=== PATIENT | male | born 1945 | race Caucasian/White ===

== ENCOUNTER 2017-11-07 21:07 | Inpatient (IN) | payer OTHER ==
[~2017-11-07] VITALS: Ht 172.7 cm; Wt 86.7 kg
[~2017-11-07 21:07] MED LIST: ASPEC325 PO; IBUP-1050 PO; PRLSR20 PO; TRAM-10 PO
[2017-11-07] MEDS ORDERED: PIPERACILLIN/TAZOBACTAM 4.5 GM/100ML D5W IV STA (22:15)
[2017-11-07] MEDS ORDERED: SODIUM CHLORIDE 0.9% 1000ML 1,000 ML IV ONE (22:15)
[2017-11-07] MEDS ORDERED: ACETAMINOPHEN 500 MG TAB PO STA (22:15)
[2017-11-07] MEDS ORDERED: ASPI81TA28 PO (22:22)
[2017-11-07] MEDS ORDERED: OPTIRAY 320 IV PRN (22:30)
--- NOTE | 2017-11-07 22:34 | DIAGNOSTIC IMAGING REPORT ---
CHEST ONE VIEW PORTABLE CLINICAL HISTORY: Sepsis dyspnea COMPARISON STUDY: 07/12/2016 FINDINGS: The bones soft tissues and hemidiaphragms are normal. The cardiomediastinal silhouette is normal. The lungs are clear. The pulmonary vasculature is normal. IMPRESSION: Negative chest. The above report was generated using voice recognition software. It may contain grammatical, syntax or spelling errors. Electronically signed by: Rupesh Lauren M.D. 11/07/2017 10:32 PM Dictated Date/Time: 11/07/2017 10:31 PM
--- NOTE | 2017-11-07 22:44 | EMERGENCY ROOM VISIT NOTE ---
History First contact with patient: 21:51 Chief Complaint: ABDOMINAL PAIN Stated Complaint: EPIGASTRIC PAIN Nursing Triage Summary: Pt arrives to B9 via ALS with c/o of epigastric pain radiating to his back that started at 1000 this am. Pt denies n/v/d or any recent illness. Rating pain 2 on scale 0-10. 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 EKG performed by this RN, Accelerated junctional rhythm with left axis deviation noted. temp 38.9. History of Present Illness The patient is a 72 year old male who presents to the Emergency Room with complaints of upper abdominal pain since this morning that began after breakfast , 6/10 in severity. Pain is constant, sharp, radiates to the back. Denies nausea , emesis, diarrhea, constipation, light colored stools, melena, hematuria, burning upon urination. Has taken pepto bismol. Laying in bed is comfortable, pain is 2/10. After interview, pt's approaches resident in the brewer and states that he has been acting out of sorts today, at one point was sitting up in bed bent over and said he was "looking for moves" and would not answer her questions directly. She says he won't hold eye contact with her. Review of Systems See HPI for pertinent positives and negatives. Past Medical/Surgical History Medical Problems: (1) Right Knee DJD Social History Smoking Status: Former Smoker Alcohol Use: none Drug Use: none Marital Status: Housing Status: lives with family Occupation Status: retired Current/Historical Medications Scheduled Aspirin (Aspirin Ec), 81 MG PO DAILY Ibuprofen (Advil), 200 MG PO TID Omeprazole (Prilosec), 20 MG PO QAM Scheduled PRN Tramadol (Ultram), 50 MG PO Q8H PRN for Pain Physical Exam Vital Signs Date Time Temp Pulse Resp B/P (MAP) Pulse Ox O2 Delivery O2 Flow Rate FiO2 11/08/17 04:00 85 19 165/80 97 Nasal Cannula 4 11/08/17 03:50 36.2 93 20 159/72 91 Nasal Cannula 4 11/08/17 02:21 38.5 103 20 160/89 97 11/08/17 00:58 157/73 11/07/17 23:24 103 20 176/81 97 Room Air 11/07/17 22:41 111 20 172/86 98 11/07/17 21:48 105 20 174/80 97 11/07/17 21:41 106 11/07/17 21:22 97 Room Air 11/07/17 21:19 38.5 112 98 162/93 Room Air Physical Exam GENERAL: Awake, alert to self and place but not time, well-appearing, in no distress HENT: Normocephalic, atraumatic. Oropharynx unremarkable. EYES: Normal conjunctiva. Sclera non-icteric. NECK: Supple. FROM. No JVD. RESPIRATORY: Clear to auscultation. CARDIAC: Regular rate, normal rhythm. Extremities warm and well perfused. Pulses equal. ABDOMEN: Soft, non-distended. ++ Tenderness to palpation in RLQ. No rebound or guarding. No masses. RECTAL: Deferred. MUSCULOSKELETAL: Chest examination reveals no tenderness. The back is symmetrical on inspection without obvious abnormality. There is no CVA tenderness to palpation. No joint edema. LOWER EXTREMITIES: Calves are equal size bilaterally and non-tender. No edema. No discoloration. NEURO: Normal sensorium. No sensory or motor deficits noted. Finger to nose in tact, CN 2-12 intact. SKIN: No rash or jaundice noted. Medical Decision & Procedures Laboratory Results 11/07/17 23:05 Red Blood Count 4.52, Mean Corpuscular Volume 83.4, Mean Corpuscular Hemoglobin 27.9, Mean Corpuscular Hemoglobin Concent 33.4, Mean Platelet Volume 10.7, Neutrophils (%) (Auto) 87.7, Lymphocytes (%) (Auto) 5.6, Monocytes (%) (Auto) 6.3, Eosinophils (%) (Auto) 0.0, Basophils (%) (Auto) 0.1, Neutrophils # (Auto) 13.53, Lymphocytes # (Auto) 0.86, Monocytes # (Auto) 0.97, Eosinophils # (Auto) 0.00, Basophils # (Auto) 0.01 11/07/17 23:05 Test 11/07/17 23:05 11/07/17 23:33 11/08/17 02:17 White Blood Count 15.41 K/uL (4.8-10.8) Red Blood Count 4.52 M/uL (4.7-6.1) Hemoglobin 12.6 g/dL (14.0-18.0) Hematocrit 37.7 % (42-52) Mean Corpuscular Volume 83.4 fL (80-100) Mean Corpuscular Hemoglobin 27.9 pg (25-34) Mean Corpuscular Hemoglobin Concent 33.4 g/dl (32-36) Platelet Count 245 K/uL (130-400) Mean Platelet Volume 10.7 fL (7.4-10.4) Neutrophils (%) (Auto) 87.7 % Lymphocytes (%) (Auto) 5.6 % Monocytes (%) (Auto) 6.3 % Eosinophils (%) (Auto) 0.0 % Basophils (%) (Auto) 0.1 % Neutrophils # (Auto) 13.53 K/uL (1.4-6.5) Lymphocytes # (Auto) 0.86 K/uL (1.2-3.4) Monocytes # (Auto) 0.97 K/uL (0.11-0.59) Eosinophils # (Auto) 0.00 K/uL (0-0.5) Basophils # (Auto) 0.01 K/uL (0-0.2) RDW Standard Deviation 44.0 fL (36.4-46.3) RDW Coefficient of Variation 14.5 % (11.5-14.5) Immature Granulocyte % (Auto) 0.3 % Immature Granulocyte # (Auto) 0.04 K/uL (0.00-0.02) Prothrombin Time 11.0 SECONDS (9.0-12.0) Prothromb Time International Ratio 1.0 (0.9-1.1) Activated Partial Thromboplast Time 24.0 SECONDS (21.0-31.0) Partial Thromboplastin Ratio 0.9 Anion Gap 9.0 mmol/L (3-11) Est Creatinine Clear Calc Drug Dose 55.0 ml/min Estimated GFR () 63.9 Estimated GFR (Non- 55.2 BUN/Creatinine Ratio 14.1 (10-20) Calcium Level 8.9 mg/dl (8.5-10.1) Magnesium Level 1.7 mg/dl (1.8-2.4) Total Bilirubin 0.5 mg/dl (0.2-1) Aspartate Amino Transf (AST/SGOT) 13 U/L (15-37) Alanine Aminotransferase (ALT/SGPT) 19 U/L (12-78) Alkaline Phosphatase 69 U/L (45-117) Troponin I < 0.015 ng/ml (0-0.045) Total Protein 7.1 gm/dl (6.4-8.2) Albumin 3.5 gm/dl (3.4-5.0) Globulin 3.6 gm/dl (2.5-4.0) Albumin/Globulin Ratio 1.0 (0.9-2) Lipase 80 U/L (73-393) Bedside Lactic Acid Venous 0.86 mmol/L (0.90-1.70) Bedside Glucose 172 mg/dl (70-99) Medications Administered Medications (Trade) Dose Ordered Sig/Magaly Route Start Time Stop Time Status Last Admin Dose Admin Sodium Chloride 1,000 ml @ 999 mls/hr Q1H1M ONCE IV 11/07/17 22:15 11/07/17 23:15 DC 11/07/17 22:36 999 MLS/HR Piperacillin Sod/ Tazobactam Sod (Zosyn Iv) 4.5 gm ONE STAT IV 11/07/17 22:15 11/07/17 22:18 DC 11/07/17 23:19 4.5 GM Acetaminophen (Tylenol Tab) 1,000 mg NOW STAT PO 11/07/17 22:15 11/07/17 22:18 DC 11/07/17 22:36 1,000 MG Magnesium Sulfate (Magnesium Sulfate) 1 gm NOW STAT IV 11/08/17 00:44 11/08/17 00:45 DC 11/08/17 00:57 1 GM Sodium Chloride 500 ml @ 999 mls/hr Q31M STAT IV 11/08/17 01:06 11/08/17 01:36 DC 11/08/17 01:06 999 MLS/HR Bupivacaine HCl (Marcaine 0.5% MPF Inj) 30 ml STK-MED ONCE .ROUTE 11/08/17 02:06 11/08/17 02:07 DC 11/08/17 03:33 20 ML Epinephrine HCl (EpINEphrine INJ 1MG/ML AMP/VIAL) 1 mg STK-MED ONCE .ROUTE 11/08/17 02:06 11/08/17 02:07 DC 11/08/17 03:32 0.15 MG ED Course 2200 signed up, reviewed records, assessed pt - when made pt aware that he is out of sorts, resident approached attending given possible delirium/ septic picture evolving. Attending ordered sepsis work up as well as IV abx and fluids, and tylenol for fever. Attending took over care, please see course details on attending's note. Medical Decision The patient is a 72 year old male who presents to the Emergency Room with complaints of upper abdominal pain since this morning that began after breakfast , 6/10 in severity. Pain is constant, sharp, radiates to the back. Denies nausea , emesis, diarrhea, constipation, light colored stools, melena, hematuria, burning upon urination. Has taken pepto bismol. Laying in bed is comfortable, pain is 2/10. After interview, pt's approaches resident in the brewer and states that he has been acting out of sorts today, at one point was sitting up in bed bent over and said he was "looking for moves" and would not answer her questions directly. She says he won't hold eye contact with her. DDX: appendicitis, delirium, [place], diverticulitis, sepsis Elevated WBC, +fever, abdomen of CT per attending shows 15mm appendix with evidence of fecalith. Attending d/w surgery. Pt prepped for admission and surgical intervention. Impression Primary Impression: Acute appendicitis Additional Impression: Confusion Departure Information Referrals No Doctor, Assigned (PCP) Patient Instructions My [facility] Resident Tracking Resident Involvement: Resident Care Provided Care Provided: Adult ED Problem Qualifiers Primary Impression: Acute appendicitis
[2017-11-07 23:36] LABS: BASO % 0.1 %; BASO ABS # 0.01 K/uL (0-0.2); HEMATOCRIT 37.7 % (42-52); HEMOGLOBIN 12.6 g/dL (14.0-18.0); IG# 0.04 K/uL (0.00-0.02); LYMPH % 5.6 %; LYMPH ABS # 0.86 K/uL (1.2-3.4); MEAN CELL VOLUME 83.4 fL (80-100); MEAN CORPUSCULAR HEMOGLOBIN 27.9 pg (25-34); MEAN CORPUSCULAR HGB CONC 33.4 g/dl (32-36); MEAN PLATELET VOLUME 10.7 fL (7.4-10.4); MONO % 6.3 %; MONO ABS # 0.97 K/uL (0.11-0.59); NEUT % 87.7 %; NEUT ABS # 13.53 K/uL (1.4-6.5); PLATELET COUNT 245 K/uL (130-400); RED CELL DISTRIBUTION WIDTH CV 14.5 % (11.5-14.5); WHITE BLOOD COUNT 15.41 K/uL (4.8-10.8)
[2017-11-07 23:54] LABS: ALBUMIN 3.5 gm/dl (3.4-5.0); ALT/SGPT 19 U/L (12-78); BLOOD UREA NITROGEN 18 mg/dl (7-18); CALCIUM 8.9 mg/dl (8.5-10.1); CARBON DIOXIDE 25 mmol/L (21-32); CREATININE 1.28 mg/dl (0.60-1.40); GLUCOSE 170 mg/dl (70-99); LIPASE 80 U/L (73-393); POTASSIUM 3.6 mmol/L (3.5-5.1); SODIUM 135 mmol/L (136-145)
[2017-11-07 23:59] LABS: ALKALINE PHOSPHATASE 69 U/L (45-117); AST/SGOT 13 U/L (15-37); TOTAL PROTEIN 7.1 gm/dl (6.4-8.2)
[2017-11-08] VITALS (11 sets, daily range): BP systolic 98–148; BP diastolic 57–72; PULSE 69–92; TEMP 36.6–37.2; O2SAT 92–99; Ht 172.7 cm; Wt 86.7 kg
--- NOTE | 2017-11-08 00:02 | EMERGENCY ROOM VISIT NOTE ---
History Report prepared by Nancy: Kaleb Akins Under the Supervision of: Dr. Dez Alves M.D. First contact with patient: 21:50 Chief Complaint: ABDOMINAL PAIN Stated Complaint: EPIGASTRIC PAIN Nursing Triage Summary: Pt arrives to B9 via ALS with c/o of epigastric pain radiating to his back that started at 1000 this am. Pt denies n/v/d or any recent illness. Rating pain 2 on scale 0-10. BSG 187 and EKG showed first degree AV block [employer]ISH[employer]. EKG performed by this RN, Accelerated junctional rhythm with left axis deviation noted. temp 38.9. History of Present Illness The patient is a 72 year old male who presents to the Emergency Room with complaints of persistent epigastric abdominal pain that began this morning. When his pain began, he rated it a 6/10 in severity. However, lying down has mildly relieved his pain, and he rates it a 2/10 in severity. This morning, the patient woke up like usual and ate breakfast. After he ate, he began having this sharp epigastric abdominal pain that radiated into his back. This persisted throughout the day. He developed a fever over this time and notes some sinus congestion. He denies any syncope, headaches, chest pain, shortness of breath, nausea, vomiting, diarrhea, or any other abnormal symptoms. He denies any previous abdominal surgeries and has not used steroids/antibiotics recently. He has a past medical history of arthritis that is controlled with Ibuprofen. The patient's informed us that he has not been himself today. He has seemed extremely distracted and is unable to answer her questions clearly and appropriately. Source of History: patient, spouse/significant other Onset: earlier this morning Position: abdomen (epigastrium) Symptom Intensity: 2/10 Quality: sharp Timing: other (Persistent) Modifying Factors (Relieving): rest (lying down) Associated Symptoms: + fevers, No LOC, No headache, No chest pain, No SOB, No nausea, No vomiting, No diarrhea Review of Systems See HPI for pertinent positives & negatives. A total of 10 systems reviewed and were otherwise negative. Past Medical & Surgical Medical Problems: (1) Right Knee DJD Family History Omitted secondary to the patient's age. Social History Smoking Status: Former Smoker Alcohol Use: none Drug Use: none Marital Status: Housing Status: lives with family Occupation Status: retired Current/Historical Medications Scheduled Aspirin (Aspirin Ec), 81 MG PO DAILY Ibuprofen (Advil), 200 MG PO TID Omeprazole (Prilosec), 20 MG PO QAM Scheduled PRN Tramadol (Ultram), 50 MG PO Q8H PRN for Pain Allergies Coded Allergies: No Known Allergies (Unverified , 07/30/16) Physical Exam Vital Signs Date Time Temp Pulse Resp B/P (MAP) Pulse Ox O2 Delivery O2 Flow Rate FiO2 11/08/17 02:21 38.5 103 20 160/89 97 11/08/17 00:58 157/73 11/07/17 23:24 103 20 176/81 97 Room Air 11/07/17 22:41 111 20 172/86 98 11/07/17 21:48 105 20 174/80 97 11/07/17 21:41 106 11/07/17 21:22 97 Room Air 11/07/17 21:19 38.5 112 98 162/93 Room Air Physical Exam GENERAL: Patient is in no acute distress. HEENT: No acute trauma, normocephalic atraumatic, mucous membranes moist, no nasal congestion, no scleral icterus. NECK: No stridor, no adenopathy, no meningismus, trachea is midline. LUNGS: Clear to auscultation bilaterally, no wheeze, no rhonchi, breath sounds equal. HEART: Tachycardic rate with a regular rhythm. No murmurs. ABDOMEN: Soft, moderately tender to the RLQ, bowel sounds positive, no hernias, no peritonitis. EXTREMITIES: No cyanosis or edema, full range of motion of all the joints without pain or difficulty, no signs for acute trauma. NEUROLOGIC: Oriented x 3, no acute motor or sensory deficits, no focal weakness. SKIN: Warm to touch. No rash, no jaundice, no diaphoresis. Medical Decision & Procedures ER Provider Diagnostic Interpretation: Radiology results as stated below per my review and radiologist interpretation: CHEST ONE VIEW PORTABLE CLINICAL HISTORY: Sepsis dyspnea COMPARISON STUDY: 07/12/2016 FINDINGS: The bones soft tissues and hemidiaphragms are normal. The cardiomediastinal silhouette is normal. The lungs are clear. The pulmonary vasculature is normal. IMPRESSION: Negative chest. The above report was generated using voice recognition software. It may contain grammatical, syntax or spelling errors. Electronically signed by: Rupesh Lauren M.D. 11/07/2017 10:32 PM Dictated Date/Time: 11/07/2017 10:[address] HEAD: No ICH, mass effect or edema. No evidence of acute cortical stroke. Periventricular small vessel ischemic change. No midline shift or hydrocephalus. Diffuse parenchymal atrophy. No Dense carotid siphon atherosclerotic calcifications. Small air-fluid level in the right maxillary sinus. Mastoid air cells are clear. CT ABDOMEN & PELVIS With Contrast: Acute appendicitis with fecaliths and appendix dilated to 15 mm. Consider reactive thickening involving the terminal ileum and the cecum (could also be from incomplete distention). No bowel obstruction. No abscess. No perforation or free air and no evidence for obstructive uropathy. Radiologist: Ravi Harrell M.D. Laboratory Results 11/07/17 23:05 Red Blood Count 4.52, Mean Corpuscular Volume 83.4, Mean Corpuscular Hemoglobin 27.9, Mean Corpuscular Hemoglobin Concent 33.4, Mean Platelet Volume 10.7, Neutrophils (%) (Auto) 87.7, Lymphocytes (%) (Auto) 5.6, Monocytes (%) (Auto) 6.3, Eosinophils (%) (Auto) 0.0, Basophils (%) (Auto) 0.1, Neutrophils # (Auto) 13.53, Lymphocytes # (Auto) 0.86, Monocytes # (Auto) 0.97, Eosinophils # (Auto) 0.00, Basophils # (Auto) 0.01 11/07/17 23:05 Test 11/07/17 23:05 11/07/17 23:33 11/08/17 02:17 White Blood Count 15.41 K/uL (4.8-10.8) Red Blood Count 4.52 M/uL (4.7-6.1) Hemoglobin 12.6 g/dL (14.0-18.0) Hematocrit 37.7 % (42-52) Mean Corpuscular Volume 83.4 fL (80-100) Mean Corpuscular Hemoglobin 27.9 pg (25-34) Mean Corpuscular Hemoglobin Concent 33.4 g/dl (32-36) Platelet Count 245 K/uL (130-400) Mean Platelet Volume 10.7 fL (7.4-10.4) Neutrophils (%) (Auto) 87.7 % Lymphocytes (%) (Auto) 5.6 % Monocytes (%) (Auto) 6.3 % Eosinophils (%) (Auto) 0.0 % Basophils (%) (Auto) 0.1 % Neutrophils # (Auto) 13.53 K/uL (1.4-6.5) Lymphocytes # (Auto) 0.86 K/uL (1.2-3.4) Monocytes # (Auto) 0.97 K/uL (0.11-0.59) Eosinophils # (Auto) 0.00 K/uL (0-0.5) Basophils # (Auto) 0.01 K/uL (0-0.2) RDW Standard Deviation 44.0 fL (36.4-46.3) RDW Coefficient of Variation 14.5 % (11.5-14.5) Immature Granulocyte % (Auto) 0.3 % Immature Granulocyte # (Auto) 0.04 K/uL (0.00-0.02) Prothrombin Time 11.0 SECONDS (9.0-12.0) Prothromb Time International Ratio 1.0 (0.9-1.1) Activated Partial Thromboplast Time 24.0 SECONDS (21.0-31.0) Partial Thromboplastin Ratio 0.9 Anion Gap 9.0 mmol/L (3-11) Est Creatinine Clear Calc Drug Dose 55.0 ml/min Estimated GFR () 63.9 Estimated GFR (Non- 55.2 BUN/Creatinine Ratio 14.1 (10-20) Calcium Level 8.9 mg/dl (8.5-10.1) Magnesium Level 1.7 mg/dl (1.8-2.4) Total Bilirubin 0.5 mg/dl (0.2-1) Aspartate Amino Transf (AST/SGOT) 13 U/L (15-37) Alanine Aminotransferase (ALT/SGPT) 19 U/L (12-78) Alkaline Phosphatase 69 U/L (45-117) Troponin I < 0.015 ng/ml (0-0.045) Total Protein 7.1 gm/dl (6.4-8.2) Albumin 3.5 gm/dl (3.4-5.0) Globulin 3.6 gm/dl (2.5-4.0) Albumin/Globulin Ratio 1.0 (0.9-2) Lipase 80 U/L (73-393) Bedside Lactic Acid Venous 0.86 mmol/L (0.90-1.70) Bedside Glucose 172 mg/dl (70-99) Laboratory results reviewed by me. Medications Administered Medications (Trade) Dose Ordered Sig/Magaly Route Start Time Stop Time Status Last Admin Dose Admin Sodium Chloride 1,000 ml @ 999 mls/hr Q1H1M ONCE IV 11/07/17 22:15 11/07/17 23:15 DC 11/07/17 22:36 999 MLS/HR Piperacillin Sod/ Tazobactam Sod (Zosyn Iv) 4.5 gm ONE STAT IV 11/07/17 22:15 11/07/17 22:18 DC 11/07/17 23:19 4.5 GM Acetaminophen (Tylenol Tab) 1,000 mg NOW STAT PO 11/07/17 22:15 11/07/17 22:18 DC 11/07/17 22:36 1,000 MG Magnesium Sulfate (Magnesium Sulfate) 1 gm NOW STAT IV 11/08/17 00:44 11/08/17 00:45 DC 11/08/17 00:57 1 GM Sodium Chloride 500 ml @ 999 mls/hr Q31M STAT IV 11/08/17 01:06 11/08/17 01:36 DC 11/08/17 01:06 999 MLS/HR Bupivacaine HCl (Marcaine 0.5% MPF Inj) 30 ml STK-MED ONCE .ROUTE 11/08/17 02:06 11/08/17 02:07 DC 11/08/17 03:33 20 ML Epinephrine HCl (EpINEphrine INJ 1MG/ML AMP/VIAL) 1 mg STK-MED ONCE .ROUTE 11/08/17 02:06 11/08/17 02:07 DC 11/08/17 03:32 0.15 MG ECG Indication: abdominal pain Rate (beats per minute): 116 Rhythm: sinus rhythm Findings: 1st degree AV block, other (No ST elevation, somewhat prolonged QT interval, no PVCs compared) Comparison ECG Date: 12 Jul 2016 Change: Compared to previous, the rate has increased. Patient's electrocardiogram interpreted by me. ED Course 2149: The patient was evaluated in room B9. A complete history and physical exam was performed. 2214: Ordered Tylenol Tab 1000 mg PO, Zosyn Iv 4.5 gm IV, Sodium Chloride 1000 ml @ 999 mls/hr IV 0006: I updated the patient and his family at this time. He is going for his CT scan. 0044: Ordered Magnesium Sulfate 1 gm IV 0106: Ordered Sodium Chloride 500 ml @ 999 mls/hr IV 0123: Upon reexamination the patient is resting. I discussed results and treatment plan with the patient and his family. He verbalizes agreement and understanding. I spoke with Dr. Sweeney of General Surgery. We discussed the patient's results and findings. The patient will be evaluated by them for further management. Medical Decision Differential diagnosis includes but is not limited to appendicitis, diverticulitis, acute cholecystitis, pancreatitis, abscess, bowel rupture, UTI, sepsis, pneumonia, and stoke. There is a moderate leukocytosis at 15,000, this is consistent with infection. No concerning anemia. No significant electrolyte abnormalities, kidney failure or hepatitis. Magnesium slightly low. EKG shows a sinus tachycardia, no acute ischemia. Cardiac enzyme testing 1 is not consistent with acute cardiac injury. By our testing, there was no evidence for pancreatitis. Chest x-ray does not show pneumonia. There was no coagulopathy. Blood cultures are pending. Lactic acid level is not elevated making severe sepsis less likely. Brain CT shows no acute bleed or mass effect. Abdominal CT shows evidence for acute appendicitis. The patient presents with a fever and tachycardia. On exam, he did have right lower quadrant pain. By our workup, he appears to have acute appendicitis. I suspect his reported mild change in mental status, his mild reported confusion is secondary to the infection and fever. The patient was given IV saline, oral Tylenol. He received IV Zosyn and IV magnesium. I spoke at length with the family, I talked with the classification case manager. The on-call surgeon was consulted. Medication Reconcilliation Current Medication List: was personally reviewed by me Blood Pressure Screening Patient's blood pressure: Elevated blood pressure Referred to the hospitalist Consults Time Called: 0120 Consulting Physician: Dr. Sweeney - General Surgery Returned Call: 0123 Discussed the patient's case. The patient will be evaluated for further management. Impression Primary Impression: Acute appendicitis Additional Impression: Confusion Scribe Attestation The scribe's documentation has been prepared under my direction and personally reviewed by me in its entirety. I confirm that the note above accurately reflects all work, treatment, procedures, and medical decision making performed by me. Departure Information Dispostion Being Evaluated By Hospitalist Referrals No Doctor, Assigned Patient Instructions My [facility] Problem Qualifiers Primary Impression: Acute appendicitis
[2017-11-08] MEDS ORDERED: MAGNESIUM SULFATE 1GM / D5W 1 GM BAG IV STA (00:44)
[2017-11-08] MEDS ORDERED: SODIUM CHLORIDE 0.9% 500ML 500 ML IV STA (01:06)
[2017-11-08] MEDS ORDERED: ATROPINE SULFATE 0.1 MG/ML 5ML SYR IV PRN (02:00)
[2017-11-08] MEDS ORDERED: EpHEDrine SULFATE INJ 50 MG/ML AMP IV PRN (02:00)
[2017-11-08] MEDS ORDERED: ONDANSETRON INJ 2 MG/ML 2 ML VIAL IV PRN (02:00)
[2017-11-08] MEDS ORDERED: HYDROmorphone INJ 2 MG/ML SYR/VIAL IV PRN (02:00)
[2017-11-08] MEDS ORDERED: PHENYLEPHRINE 100MCG/ML 5ML SYR IV PRN (02:00)
[2017-11-08] MEDS ORDERED: EpINEphrine INJ 1MG/ML AMP 1 MG/ML AMP ONE (02:06)
[2017-11-08] MEDS ORDERED: BUPIVACAINE 0.5 % 5 MG/1 ML MPF 30ML VIAL ONE (02:06)
[2017-11-08] MEDS ORDERED: PROPOFOL IV EMULSION 10 MG/ML 20 ML VIAL IV ONE (02:09)
[2017-11-08] MEDS ORDERED: LIDOCAINE HCL 2% 2 ML VIAL (20MG/ML) ONE (02:10)
[2017-11-08] MEDS ORDERED: FENTANYL CITRATE INJ 50 MCG/1 ML 2 ML VIAL ONE ×2 (02:11)
--- NOTE | 2017-11-08 02:23 | History and Physical ---
History & Physical Date Nov 08, 2017. Chief Complaint abdominal pain History of Present Illness The patient is a 72 year old male with complaints of abdominal pain. He came to ED with complaints of persistent epigastric abdominal pain that began this morning. The pain is currently in his RLQ without radiation. He ate this AM and he began having this sharp epigastric abdominal pain that radiated into his back. However, lying down has mildly relieved his pain but did persist throughout the day. He has subjective fevers. He was confused according to spouse but is appropriate currently. He denies any syncope, headaches, chest pain, shortness of breath, nausea, vomiting, diarrhea, or any other abnormal symptoms. A CT scan shows acute appendicitis. Past Medical/Surgical History Medical/Surgical Problems: s/p TKR GERD DJD Additional History Hepatic Disease: No Endocrine Disorder: No Kidney Disease: No Hypertension: No Heart Disease: No Bleeding Tendencies: No Infectious Diseases: No Allergies Coded Allergies: No Known Allergies (Unverified , 07/30/16) Home Medications Scheduled Aspirin (Aspirin Ec), 81 MG PO DAILY Ibuprofen (Advil), 200 MG PO TID Omeprazole (Prilosec), 20 MG PO QAM Scheduled PRN Tramadol (Ultram), 50 MG PO Q8H PRN for Pain Physical Examination Skin: warm/dry, no rash Eyes: normal inspection, EOMI ENT: normal ENT inspection, pharynx normal Head: normocephalic, atraumatic Neck: supple, no adenopathy, trachea midline Respiratory/Chest: lungs clear, normal breath sounds, no respiratory distress Cardiovascular: regular rate, rhythm, no edema, no murmur Abdomen / GI: normal bowel sounds, + pertinent finding (RLQ tenderness with guarding; no hernias) Back: normal inspection Extremities: normal inspection Genitourinary - Male: normal male genitalia, normal phallus, normal testicles Neurologic/Psych: no motor/sensory deficits, alert, oriented x 3 Diagnosis Acute appendicitis ASA Classification: ASA Class II Plan of Treatment -IVF -IV zosyn -to OR for laparoscopic appendectomy
[2017-11-08] MEDS ORDERED: ALUMINUM/MAGNESIUM/SIMETH (MAALOX MAX) 30 ML UDC PO PRN (02:30)
[2017-11-08] MEDS ORDERED: ACETAMINOPHEN 325 MG TAB PO PRN (02:30)
[2017-11-08] MEDS ORDERED: ZOLPIDEM TARTRATE 5 MG TAB PO PRN (02:30)
[2017-11-08] MEDS ORDERED: MoRPHine SULFATE 2 MG/ML CARP IV PRN (02:30)
[2017-11-08] MEDS ORDERED: MAGNESIUM HYDROXIDE SUSP 30 ML UDC PO PRN (02:30)
[2017-11-08] MEDS ORDERED: ROCURONIUM BROMIDE 10 MG/ML 5 ML VIAL IV ONE (02:59)
[2017-11-08] MEDS ORDERED: ONDANSETRON INJ 2 MG/ML 2 ML VIAL ONE (02:59)
--- NOTE | 2017-11-08 03:37 | [facility] Post Operative Brief Note ---
Immediate Operative Summary Operative Date Nov 08, 2017. Pre-Operative Diagnosis Acute Appendicitis Post-Operative Diagnosis Acute Gangrenous Appendicitis Procedure(s) Performed Laparoscopic Appendectomy Surgeon Dr Sweeney Project Inspector Surgeon(s) None Estimated Blood Loss 20cc Findings Consistent with Post-Op Diagnosis Specimens As Per Surgeon A. Appendix Drains Rik in RLQ Anesthesia Type General Complication(s) Appendix fell apart with retraction
--- NOTE | 2017-11-08 03:54 | Anesthesiology Progress Note ---
Anesthesia Post Op Note Date & Time Nov 08, 2017 at 03:54 Vital Signs Pain Intensity: 2.0 Vital Signs Past 12 Hours Date Time Temp Pulse Resp B/P (MAP) Pulse Ox O2 Delivery O2 Flow Rate FiO2 11/08/17 02:21 38.5 103 20 160/89 97 11/08/17 00:58 157/73 11/07/17 23:24 103 20 176/81 97 Room Air 11/07/17 22:41 111 20 172/86 98 11/07/17 21:48 105 20 174/80 97 11/07/17 21:41 106 11/07/17 21:22 97 Room Air 11/07/17 21:19 38.5 112 98 162/93 Room Air Notes Mental Status: alert / awake / arousable, participated in evaluation Pt Amnestic to Procedure: Yes Nausea / Vomiting: adequately controlled Pain: adequately controlled Airway Patency, RR, SpO2: stable & adequate BP & HR: stable & adequate Hydration State: stable & adequate Anesthetic Complications: no major complications apparent
[2017-11-08] MEDS ORDERED: HYDROmorphone INJ 1 MG/ML SYR ONE (04:22)
--- NOTE | 2017-11-08 04:25 | OPERATIVE REPORT ---
DATE OF OPERATION: 11/08/2017 PREOPERATIVE DIAGNOSIS: Acute appendicitis. POSTOPERATIVE DIAGNOSIS: Acute gangrenous appendicitis. PROCEDURE PERFORMED: Laparoscopic appendectomy. SURGEON: Paul Sweeney MD. DROP CLIPPER: None. ANESTHESIA: General endotracheal with 0.5% Marcaine with epinephrine local. ESTIMATED BLOOD LOSS: 20 mL. DRAINS: Rik drain in the right lower quadrant. COMPLICATIONS: The patient had a gangrenous appendicitis which with retraction created a hole in the Appendix. INDICATION FOR PROCEDURE: This is a 72-year-old male who came in with a history of abdominal pain since this morning with some confusion and underwent a workup including a CT of his head and CT of his abdomen. The abdomen showed acute appendicitis with a large fecalith. CT of the head was normal. He was alert and oriented when I interviewed him. He had an elevated white count and exam consistent with acute appendicitis. We will take him to the OR for laparoscopic appendectomy. He got preoperative Zosyn. He also had SCDs placed perioperatively. DESCRIPTION OF PROCEDURE: The patient was taken to the OR and underwent excellent general endotracheal anesthesia. His abdomen was prepped and draped in normal sterile fashion. Transverse supraumbilical incision was made and a Veress needle was then inserted into the peritoneal cavity. Good pneumoperitoneum was achieved and then a visualized 11 trocar was placed. A 12 was placed in his left lower quadrant, a 5 suprapubic and a 5 right upper quadrant. He was placed in head down and rolled to the left. He had some dilated bowel consistent with mild ileus. There was some turbid fluid within the right lower quadrant. With an atraumatic grasper, the cecum was grasped. The base of the appendix was identified. The tip of the appendix was stuck down into the right lower quadrant. This was freed using blunt and sharp dissection. With the tip identified, this was placed on tension. Once this was done, there was a small hole made in the appendix with some spillage of material within the appendix. With the appendix under tension, Harmonic scalpel was used to take down the mesoappendix down to its base. A LISA 45 purple load of the stapler was used to transect the appendix at its base. The appendix was brought out with an Endobag removing any of the intra-appendiceal material. This was then brought out and sent for pathologic evaluation. Pneumoperitoneum was reestablished. 2 liters of saline were used to irrigate out the right lower quadrant pelvis until this was clear. Staple line was intact and showed no sign of bleeding. Once this was done, a Rik drain was placed through the suprapubic incision and placed in the right lower quadrant. Clear blood tinged fluid came out throughout the case. The pneumoperitoneum was then decompressed. The ports were removed. A 0 Vicryl was used to close the fascial defects at 11 and 12 ports. 0.5% Marcaine with epinephrine local was used to create a local field block. Interrupted Vicryl was used to close the skin. Steri-Strips and benzoin were used to reinforce the incision. Sterile dressings were applied. The patient tolerated the procedure well without any complications, sent to post-recovery for a period of observation and will be discharged up to his room once he meets criteria. I attest to the content of the Intraoperative Record and any orders documented therein. Any exception s are noted below.
[2017-11-08] MEDS ORDERED: MoRPHine SULFATE 4 MG/ML 1 ML CARP\\VIAL IV PRN (05:45)
[2017-11-08] MEDS: PIPERACILL/TAZOBAC IV 3.375 GM in DEXTROSE 5% 100ML 100 ML IV SCH ×3 (05:47→21:55)
[2017-11-08] MEDS: LACTATED RINGER'S 1000ML 1,000 ML IV SCH ×2 (05:47→16:08)
[2017-11-08] MEDS: OXYCODONE/ACETAMINOPHEN 5-325 TAB PO PRN ×3 (07:05→19:11)
--- NOTE | 2017-11-08 08:15 | DIAGNOSTIC IMAGING REPORT ---
HEAD WITHOUT CONTRAST (CT) CLINICAL HISTORY: 72 years-old Male presenting with confusion. TECHNIQUE: Multidetector CT imaging of the head was performed without the use of intravenous contrast. IV contrast: None. A dose lowering technique was used consistent with the principles of ALARA (as low as reasonably achievable). COMPARISON: None. CT DOSE (mGy.cm): The estimated cumulative dose is 614.27 mGy.cm. FINDINGS: Arranging Funeral Director topogram: Unremarkable. Proportional ventricular and sulcal prominence, likely age-related parenchymal volume loss. Periventricular and subcortical white matter hypoattenuation, nonspecific but likely indicative of chronic small vessel ischemic change. Old lacunar infarcts in the bilateral basal ganglia. No mass effect or midline shift. No hemorrhage or acute territorial infarct. No extra-axial fluid collection. Layering fluid in the right maxillary sinus. Calvarium intact. Atherosclerosis. IMPRESSION: 1. Chronic small vessel ischemic change. No acute intracranial abnormality. 2. Layering fluid in the right maxillary sinus, which can be seen in the setting of acute sinusitis. Electronically signed by: Temo Josue M.D. 11/08/2017 8:13 AM Dictated Date/Time: 11/08/2017 8:11 AM
--- NOTE | 2017-11-08 08:28 | DIAGNOSTIC IMAGING REPORT ---
ABD/PELVIS IV CONTRAST ONLY CLINICAL HISTORY: 72 years-old Male presenting with ABD PAIN, POSS APPY, IV CONTRAST ONLY. TECHNIQUE: Multidetector CT of the abdomen and pelvis was performed after the administration of intravenous contrast. IV contrast: 115 mL of Optiray 320. A dose lowering technique was used consistent with the principles of ALARA (as low as reasonably achievable). COMPARISON: None. CT DOSE (mGy.cm): The estimated cumulative dose is 959.86 mGy.cm. FINDINGS: Vat Skimmer topogram: Total right hip arthroplasty. Gaseous distention of cecum. Lung bases: Minimal basilar opacities, likely atelectasis. Solid fissural nodule noted in the lingula measuring 4-5 mm (series 3 image 2). Solid 3-4 mm nodule peripherally in the lingula (series 3 image 36). Mild multichamber enlargement of the heart. Aortic valve artery calcification. No pericardial or pleural effusion. Right greater than left gynecomastia. Liver: Normal morphology. No liver lesion. Patent hepatic vasculature. Biliary: No intrahepatic or extrahepatic biliary ductal dilatation. Normal gallbladder. Pancreas: Moderate parenchymal atrophy. Spleen: Normal. Adrenal glands: Normal. Kidneys and ureters: Well-defined hypodensity in the right kidney likely simple cyst. No nephrolithiasis. No hydronephrosis. Minimal perinephric fat stranding, nonspecific. Ureters normal. Bladder: Mild circumferential bladder wall thickening likely indicating chronic outlet obstruction. Pelvic organs: Prostate enlargement likely secondary to benign prostatic hyperplasia. Bowel: Moderate stool burden. Diverticulosis of the sigmoid colon. Mild wall thickening of the transverse colon, possibly due to underdistention. Abnormal dilation of the appendix, which contains multiple appendicoliths including one impacted at the appendiceal base. Surrounding inflammatory change most prominent in the appendiceal tip. Few adjacent prominent mesenteric lymph nodes in the right lower quadrant. Medialization of the cecum, which is not pathologically dilated. No bowel obstruction. Peritoneal cavity: No free fluid or intraperitoneal gas. No evidence of abscess. Lymph nodes: No enlarged lymph nodes in the abdomen or pelvis. Vasculature: Atherosclerosis of the normal caliber abdominal aorta. IVC patent. Chronic short segment infrarenal abdominal aortic dissection may also be present (series 3 image 233). Abdominal wall: Small fat-containing umbilical hernia. Mild body wall edema. Musculoskeletal: Total left hip arthroplasty. IMPRESSION: 1. Findings consistent with acute uncomplicated appendicitis, which contains multiple appendicoliths. No evidence of abscess or jared perforation. 2. Diverticulosis. 3. Possible short segment chronic infrarenal abdominal aortic dissection. 4. Evidence of chronic bladder outlet obstruction secondary to prostatomegaly. 5. Two solid pulmonary nodules in the left lung measuring up to 4-5 mm. 6. Preliminary findings were discussed with Dr. Alves by Dr. Harrell at 1:21 AM on 11/08/2017. Electronically signed by: Temo Josue M.D. 11/08/2017 8:26 AM Dictated Date/Time: 11/08/2017 8:17 AM
[2017-11-08] MEDS: PANTOprazole SOD 40 MG TAB PO SCH (08:44)
[2017-11-09] VITALS (11 sets, daily range): BP systolic 138–180; BP diastolic 75–95; PULSE 72–84; TEMP 36.6–37.1; O2SAT 91–96
[2017-11-09] MEDS: LACTATED RINGER'S 1000ML 1,000 ML IV SCH ×2 (01:56→14:09)
[2017-11-09] MEDS: OXYCODONE/ACETAMINOPHEN 5-325 TAB PO PRN ×4 (01:58→18:26)
[2017-11-09 05:26] LABS: BASO % 0.2 %; BASO ABS # 0.02 K/uL (0-0.2); EOS % 1.1 %; EOS ABS # 0.12 K/uL (0-0.5); HEMOGLOBIN 10.6 g/dL (14.0-18.0); IG# 0.03 K/uL (0.00-0.02); LYMPH % 22.3 %; LYMPH ABS # 2.54 K/uL (1.2-3.4); MEAN CORPUSCULAR HEMOGLOBIN 27.8 pg (25-34); MEAN CORPUSCULAR HGB CONC 33.1 g/dl (32-36); MONO % 8.1 %; MONO ABS # 0.92 K/uL (0.11-0.59); NEUT ABS # 7.75 K/uL (1.4-6.5); PLATELET COUNT 181 K/uL (130-400); RED CELL DISTRIBUTION WIDTH CV 14.7 % (11.5-14.5); RED CELL DISTRIBUTION WIDTH SD 45.4 fL (36.4-46.3); WHITE BLOOD COUNT 11.38 K/uL (4.8-10.8)
[2017-11-09] MEDS: PANTOprazole SOD 40 MG TAB PO SCH (07:32)
--- NOTE | 2017-11-09 09:56 | Surgery Progress Note ---
Surgery Progress Note Date of Service Nov 09, 2017. Subjective Post OP Day: 1 + feeling well, + diet (clears), No complaints, No bowel movement, No flatus, No nausea, No vomiting Objective Vital Signs: Date Time Temp Pulse Resp B/P (MAP) Pulse Ox O2 Delivery O2 Flow Rate FiO2 11/09/17 08:10 177/95 (122) 11/09/17 07:20 Room Air 11/09/17 07:05 37.1 72 18 171/82 (111) 92 Room Air 11/09/17 03:49 36.7 78 16 150/78 (102) 95 Room Air 11/08/17 23:15 Room Air 11/08/17 23:05 36.7 77 16 120/67 (84) 96 Room Air 11/08/17 20:15 133/70 (91) 11/08/17 19:45 36.7 69 16 97 Room Air 11/08/17 15:10 Room Air 11/08/17 15:04 37.2 77 16 98/57 (71) 95 Room Air 11/08/17 11:47 36.8 78 16 108/66 (80) 96 Room Air Physical Exam: Rik drainage (cloudy but mainly serosanguious) General Appearance: WD/WN, no apparent distress Head: normocephalic, atraumatic Neck: supple, trachea midline Respiratory/Chest: chest non-tender Cardiovascular: regular rate, rhythm Abdomen: normal bowel sounds, soft, + distended, + tenderness (mild) Incision(s): clean, dry, intact Extremities: non-tender, no pedal edema Laboratory Results: Results Past 24 Hours Test 11/09/17 05:10 Range/Units White Blood Count 11.38 4.8-10.8 K/uL Red Blood Count 3.81 4.7-6.1 M/uL Hemoglobin 10.6 14.0-18.0 g/dL Hematocrit 32.0 42-52 % Mean Corpuscular Volume 84.0 80-100 fL Mean Corpuscular Hemoglobin 27.8 25-34 pg Mean Corpuscular Hemoglobin Concent 33.1 32-36 g/dl Platelet Count 181 130-400 K/uL Mean Platelet Volume 10.0 7.4-10.4 fL Neutrophils (%) (Auto) 68.0 % Lymphocytes (%) (Auto) 22.3 % Monocytes (%) (Auto) 8.1 % Eosinophils (%) (Auto) 1.1 % Basophils (%) (Auto) 0.2 % Neutrophils # (Auto) 7.75 1.4-6.5 K/uL Lymphocytes # (Auto) 2.54 1.2-3.4 K/uL Monocytes # (Auto) 0.92 0.11-0.59 K/uL Eosinophils # (Auto) 0.12 0-0.5 K/uL Basophils # (Auto) 0.02 0-0.2 K/uL RDW Standard Deviation 45.4 36.4-46.3 fL RDW Coefficient of Variation 14.7 11.5-14.5 % Immature Granulocyte % (Auto) 0.3 % Immature Granulocyte # (Auto) 0.03 0.00-0.02 K/uL Assessment & Plan gangrenous appendicitis with some spillage intra-op of appendicolith -IV zosyn -drain -IVF -clears -WBC down, no fevers
[2017-11-09] MEDS ORDERED: PIPERACILL/TAZOBAC CONSULT ACTIVE PRN (10:00)
[2017-11-09] MEDS ORDERED: PIPERACILL/TAZOBAC IV 4.5 GM in DEXTROSE 5% 100ML IV ONE (10:15)
[2017-11-09] MEDS ORDERED: MAGNESIUM SULFATE 1GM / D5W 1 GM in PREMIXED IN D5W 100 ML IV STA (11:40)
[2017-11-09] MEDS ORDERED: AMLODIPINE BESYLATE 5 MG TAB PO ONE ×2 (11:45→15:00)
--- NOTE | 2017-11-09 12:40 | Medical Consult ---
Consultation Date of Consultation: Nov 09, 2017. Attending Physician: Paul Sweeney M.D. Reason for Consultation: Medical management History of Present Illness This is a 72 year old male with a PMH of GERD, BPH -- presented to the ED with severe abdominal pain around the umbilicus. States that the pain became so severe that it radiated to his back. Presented to the ED and had a CT of the abdomen done, showing an acute appendicitis. Patient went for surgery in the early hours on 11/08. Post-operatively, doing well, besides elevated blood pressure. Currently in no distress; no fevers/chills, no nausea/vomiting/ diarrhea; tolerating liquid diet. Past Medical/Surgical History Medical Problems: (1) Acute appendicitis Status: Acute (2) Confusion Status: Acute Social History Smoking Status: Never Smoker Drug Use: none Marital Status: Housing Status: lives with family Occupation Status: retired Allergies Coded Allergies: No Known Allergies (Unverified , 07/30/16) Current Inpatient Medications Current Inpatient Medications Medications (Trade) Dose Ordered Sig/Magaly Route Start Time Stop Time Status Last Admin Dose Admin Ioversol (Optiray 320) 111 ml UD PRN IV 11/07/17 22:30 11/11/17 22:29 Acetaminophen (Tylenol Tab) 650 mg Q4H PRN PO 11/08/17 02:30 12/08/17 02:29 Al Hydrox/Mg Hydrox/Simethicone (Maalox Max Susp) 15 ml Q4H PRN PO 11/08/17 02:30 12/08/17 02:29 Magnesium Hydroxide (Milk Of Magnesia Susp) 30 ml Q6H PRN PO 11/08/17 02:30 12/08/17 02:29 Zolpidem Tartrate (Ambien Tab) 5 mg HSZ PRN PO 11/08/17 02:30 12/08/17 02:29 Ondansetron HCl (Zofran Inj) 4 mg Q6H PRN IV 11/08/17 02:30 12/08/17 02:29 Lactated Ringer's 1,000 ml @ 50 mls/hr Q20H IV 11/08/17 06:00 12/08/17 05:59 11/09/17 01:56 100 MLS/HR Pantoprazole Sodium (Protonix Tab) 40 mg QDB PO 11/08/17 08:30 12/08/17 08:29 11/09/17 07:32 40 MG Morphine Sulfate (MoRPHine SULFATE INJ) 2 mg Q1H PRN IV 11/08/17 02:30 11/22/17 02:29 Oxycodone/ Acetaminophen (Percocet 5-325mg Tab) @ Q4H PRN PO 11/08/17 02:30 11/22/17 02:29 11/09/17 12:06 2 TAB Morphine Sulfate (MoRPHine SULFATE INJ) 4 mg Q1H PRN IV 11/08/17 05:45 11/22/17 05:44 Piperacillin Sod/ Tazobactam Sod 3.375 gm/Dextrose 115 ml @ 28.75 mls/ hr Q8H IV 11/09/17 16:00 11/19/17 15:59 Miscellaneous Information (Consult) 1 ea UD PRN N/A 11/09/17 10:00 12/09/17 09:59 Magnesium Sulfate 1 gm/Prmx 100 ml @ 100 mls/hr NOW STAT IV 11/09/17 11:40 11/09/17 12:39 11/09/17 12:22 100 MLS/HR Review of Systems Constitutional: No fever, No chills, No sweats, No weakness Respiratory: No cough, No sputum, No shortness of breath Cardiovascular: No chest pain, No edema, No palpitations Abdomen: + constipation, No pain, No nausea, No vomiting, No diarrhea, No GI bleeding Musculoskeletal: No joint pain, No muscle pain Genitourinary - Male: No hematuria, No dysuria, No urinary frequency, No urinary urgency Neurologic: No balance problems Psychiatric: No depression symptoms, No anxiety Endocrine: No fatigue Hematologic / Lymphatic: No abnormal bleeding/bruising Integumentary: No rash Allergic / Immunologic: No environmental allergies, No seasonal allergies Physical Exam Date Time Temp Pulse Resp B/P (MAP) Pulse Ox O2 Delivery O2 Flow Rate FiO2 11/09/17 11:20 36.6 82 18 174/83 (113) 96 Room Air 11/09/17 10:00 83 173/83 (113) 11/09/17 08:10 177/95 (122) 11/09/17 07:20 Room Air 11/09/17 07:05 37.1 72 18 171/82 (111) 92 Room Air 11/09/17 03:49 36.7 78 16 150/78 (102) 95 Room Air 11/08/17 23:15 Room Air 11/08/17 23:05 36.7 77 16 120/67 (84) 96 Room Air 11/08/17 20:15 133/70 (91) 11/08/17 19:45 36.7 69 16 97 Room Air 11/08/17 15:10 Room Air 11/08/17 15:04 37.2 77 16 98/57 (71) 95 Room Air General Appearance: WD/WN, no apparent distress Head: normocephalic, atraumatic Eyes: normal inspection ENT: hearing grossly normal Neck: supple Respiratory/Chest: chest non-tender, lungs clear, normal breath sounds, no respiratory distress, no accessory muscle use Cardiovascular: regular rate, rhythm, no edema, no murmur, normal peripheral pulses Abdomen/GI: normal bowel sounds, non tender, soft, + pertinent finding (drain in place) Back: no muscle spasm Extremities/Musculoskelatal: normal inspection, no calf tenderness, normal capillary refill, no pedal edema, normal range of motion Neurologic/Psych: pharmacy technician per diem II-XII nml as tested, no motor/sensory deficits, alert, normal mood/affect, oriented x 3 Skin: normal color Lymphatic: no adenopathy Laboratory Results Last 24 Hours Test 11/09/17 05:10 White Blood Count 11.38 K/uL Red Blood Count 3.81 M/uL Hemoglobin 10.6 g/dL Hematocrit 32.0 % Mean Corpuscular Volume 84.0 fL Mean Corpuscular Hemoglobin 27.8 pg Mean Corpuscular Hemoglobin Concent 33.1 g/dl Platelet Count 181 K/uL Mean Platelet Volume 10.0 fL Neutrophils (%) (Auto) 68.0 % Lymphocytes (%) (Auto) 22.3 % Monocytes (%) (Auto) 8.1 % Eosinophils (%) (Auto) 1.1 % Basophils (%) (Auto) 0.2 % Neutrophils # (Auto) 7.75 K/uL Lymphocytes # (Auto) 2.54 K/uL Monocytes # (Auto) 0.92 K/uL Eosinophils # (Auto) 0.12 K/uL Basophils # (Auto) 0.02 K/uL RDW Standard Deviation 45.4 fL RDW Coefficient of Variation 14.7 % Immature Granulocyte % (Auto) 0.3 % Immature Granulocyte # (Auto) 0.03 K/uL Assessment & Plan This is a 72 year old male with a PMH of GERD, BPH - presents with acute appendicitis Acute Appendicitis s/p lap appendectomy POD #1 doing well, pain controlled, continue pain regimen as per general surgery currently on Zosyn, WBC improving recheck CBC in AM Expected Acute Blood Loss Anemia Hgb down from 12 to [address], draining serosanguineous discharge monitor CBC Elevated Blood Pressure without diagnosis of HTN BP remains elevated chang-operatively initially, likely elevated due to pain, currently elevated possibly secondary to stress response from surgery either way, we will try one dose of amlodipine to bring this down continue pain control, monitor labs in AM GERD continue Protonix can continue Prilosec on discharge DVT ppx as per ortho early ambulation FULL CODE
[2017-11-09] MEDS ORDERED: ENALAPRILAT IV 1.25 MG in DEXTROSE 5% 25ML 25 ML IV ONE (14:00)
[2017-11-09] MEDS: ONDANSETRON INJ 2 MG/ML 2 ML VIAL IV PRN (15:22)
[2017-11-09] MEDS: PIPERACILL/TAZOBAC IV 3.375 GM in DEXTROSE 5% 100ML 100 ML IV SCH (15:41)
[2017-11-10] VITALS (7 sets, daily range): BP systolic 126–168; BP diastolic 64–86; PULSE 73–86; TEMP 36.8–37.2; O2SAT 91–96
[2017-11-10] MEDS: PIPERACILL/TAZOBAC IV 3.375 GM in DEXTROSE 5% 100ML 100 ML IV SCH ×4 (00:19→23:29)
[2017-11-10] MEDS: OXYCODONE/ACETAMINOPHEN 5-325 TAB PO PRN ×4 (00:34→21:59)
[2017-11-10 05:49] LABS: BASO % 0.1 %; BASO ABS # 0.01 K/uL (0-0.2); HEMOGLOBIN 10.9 g/dL (14.0-18.0); IG# 0.03 K/uL (0.00-0.02); LYMPH % 16.9 %; LYMPH ABS # 1.68 K/uL (1.2-3.4); MEAN CELL VOLUME 84.7 fL (80-100); MEAN CORPUSCULAR HEMOGLOBIN 28.8 pg (25-34); MEAN CORPUSCULAR HGB CONC 34.1 g/dl (32-36); MEAN PLATELET VOLUME 9.9 fL (7.4-10.4); MONO % 8.6 %; MONO ABS # 0.86 K/uL (0.11-0.59); NEUT % 71.1 %; NEUT ABS # 7.07 K/uL (1.4-6.5); PLATELET COUNT 207 K/uL (130-400); RED CELL DISTRIBUTION WIDTH CV 14.8 % (11.5-14.5); WHITE BLOOD COUNT 9.95 K/uL (4.8-10.8)
[2017-11-10 06:19] LABS: CALCIUM 8.4 mg/dl (8.5-10.1); CREATININE 1.24 mg/dl (0.60-1.40); POTASSIUM 3.5 mmol/L (3.5-5.1)
[2017-11-10] MEDS: ONDANSETRON INJ 2 MG/ML 2 ML VIAL IV PRN (07:35)
[2017-11-10] MEDS: PANTOprazole SOD 40 MG TAB PO SCH (07:37)
[2017-11-10] MEDS: LACTATED RINGER'S 1000ML 1,000 ML IV SCH (09:33)
--- NOTE | 2017-11-10 11:06 | Surgery Progress Note ---
Surgery Progress Note Date of Service Nov 10, 2017. Subjective Post OP Day: 3 (s/p laparoscopic appendectomy) Pain controlled with oral meds, mostly when getting up and out of bed. Pain is better controlled today. + nausea with full liquids no vomiting walking hallways, Objective Vital Signs: Date Time Temp Pulse Resp B/P (MAP) Pulse Ox O2 Delivery O2 Flow Rate FiO2 11/10/17 08:15 91 Room Air 11/10/17 08:13 37.2 86 18 164/86 (112) 91 Room Air 11/10/17 07:15 Room Air 11/10/17 00:20 Room Air 11/09/17 22:45 36.9 84 16 144/75 (98) 91 Room Air 11/09/17 19:29 155/76 (102) 11/09/17 15:50 73 138/76 (96) 11/09/17 15:15 95 Room Air 11/09/17 14:34 37.0 76 16 163/82 (109) 95 Room Air 11/09/17 12:56 180/90 (120) 172/94 (120) 11/09/17 11:20 36.6 82 18 174/83 (113) 96 Room Air Physical Exam: HOLDEN drainage (serosanguineous) General Appearance: WD/WN, no apparent distress Head: normocephalic, atraumatic Neck: trachea midline Respiratory/Chest: no respiratory distress, no accessory muscle use Abdomen: non distended, soft, + tenderness (at incisions, appropriate post op) Incision(s): clean, dry (dressings clean and dry, some dried drainage present) Laboratory Results: Results Past 24 Hours Test 11/10/17 05:18 Range/Units White Blood Count 9.95 4.8-10.8 K/uL Red Blood Count 3.78 4.7-6.1 M/uL Hemoglobin 10.9 14.0-18.0 g/dL Hematocrit 32.0 42-52 % Mean Corpuscular Volume 84.7 80-100 fL Mean Corpuscular Hemoglobin 28.8 25-34 pg Mean Corpuscular Hemoglobin Concent 34.1 32-36 g/dl Platelet Count 207 130-400 K/uL Mean Platelet Volume 9.9 7.4-10.4 fL Neutrophils (%) (Auto) 71.1 % Lymphocytes (%) (Auto) 16.9 % Monocytes (%) (Auto) 8.6 % Eosinophils (%) (Auto) 3.0 % Basophils (%) (Auto) 0.1 % Neutrophils # (Auto) 7.07 1.4-6.5 K/uL Lymphocytes # (Auto) 1.68 1.2-3.4 K/uL Monocytes # (Auto) 0.86 0.11-0.59 K/uL Eosinophils # (Auto) 0.30 0-0.5 K/uL Basophils # (Auto) 0.01 0-0.2 K/uL RDW Standard Deviation 46.0 36.4-46.3 fL RDW Coefficient of Variation 14.8 11.5-14.5 % Immature Granulocyte % (Auto) 0.3 % Immature Granulocyte # (Auto) 0.03 0.00-0.02 K/uL Sodium Level 136 136-145 mmol/L Potassium Level 3.5 3.5-5.1 mmol/L Chloride Level 103 98-107 mmol/L Carbon Dioxide Level 29 21-32 mmol/L Anion Gap 4.0 3-11 mmol/L Blood Urea Nitrogen 9 7-18 mg/dl Creatinine 1.24 0.60-1.40 mg/dl Est Creatinine Clear Calc Drug Dose 56.8 ml/min Estimated GFR () 66.4 Estimated GFR (Non- 57.3 BUN/Creatinine Ratio 7.6 10-20 Random Glucose 122 70-99 mg/dl Calcium Level 8.4 8.5-10.1 mg/dl Magnesium Level 2.4 1.8-2.4 mg/dl Assessment & Plan POD # 3 s/p laparoscopic appendectomy -vitals stable, afebrile - leukocytosis resolved - + nausea with full liquids - pain better controlled - HOLDEN with serosanguineous output, 100 cc last 24 hour shift, 20 cc this am Plan: Continue current pain management Continue full liquids, advised to go slowly Continue IV Zofran prn nausea Continue IV fluids and IV antibiotics Encourage ambulation as doing already continue holden drain to bulb suction Hopeful discharge tomorrow , will be discharged with PO antibiotics Dr. Pena has seen and examined patient, agrees with above
--- NOTE | 2017-11-10 18:01 | Progress Note ---
Internal Med Progress Note Date of Service: Nov 10, 2017. Provider Documentation: SUBJECTIVE: The patient was seen and examined Noted to have high BP without any symptoms Denies any symptoms OBJECTIVE: Vital Signs-as noted below Exam: General-no distress at rest Eyes-normal ENT-normal Neck-supple Lungs-clear to ausucltate bilaterally Heart-Regular,no murmur Abdomen-Benign Extremities-No edema Neuro-AAOx3 Lab data as noted below. ASSESSMENT & PLAN: This is a 72 year old male with a PMH of GERD, BPH - presents with acute appendicitis Acute Appendicitis s/p lap appendectomy POD # 2 doing well, pain controlled, continue pain regimen as per general surgery currently on Zosyn, WBC improving CBC and PRP-unremarkable Expected Acute Blood Loss Anemia Hgb down from 12 to [address], draining serosanguineous discharge monitor CBC-no change in Hb Elevated Blood Pressure without diagnosis of HTN BP remains elevated chang-operatively initially, likely elevated due to pain, currently elevated possibly secondary to stress response from surgery either way, we will try one dose of amlodipine to bring this down continue pain control, monitor labs in AM Remains on the upper side Will not put on any Antihypertensive Med regularly PRN meds for now GERD continue Protonix can continue Prilosec on discharge DVT ppx as per ortho early ambulation FULL CODE Medically stable Vital Signs: Date Time Temp Pulse Resp B/P (MAP) Pulse Ox O2 Delivery O2 Flow Rate FiO2 11/10/17 15:58 150/78 (102) 11/10/17 15:42 37.1 84 16 168/76 (106) 96 Room Air 11/10/17 15:15 96 Room Air 11/10/17 11:54 36.8 78 18 126/70 (88) 95 Room Air 11/10/17 08:15 91 Room Air 11/10/17 08:13 37.2 86 18 164/86 (112) 91 Room Air 11/10/17 07:15 Room Air 11/10/17 00:20 Room Air 11/09/17 22:45 36.9 84 16 144/75 (98) 91 Room Air 11/09/17 19:29 155/76 (102) Lab Results: Results Past 24 Hours Test 11/10/17 05:18 Range/Units White Blood Count 9.95 4.8-10.8 K/uL Red Blood Count 3.78 4.7-6.1 M/uL Hemoglobin 10.9 14.0-18.0 g/dL Hematocrit 32.0 42-52 % Mean Corpuscular Volume 84.7 80-100 fL Mean Corpuscular Hemoglobin 28.8 25-34 pg Mean Corpuscular Hemoglobin Concent 34.1 32-36 g/dl Platelet Count 207 130-400 K/uL Mean Platelet Volume 9.9 7.4-10.4 fL Neutrophils (%) (Auto) 71.1 % Lymphocytes (%) (Auto) 16.9 % Monocytes (%) (Auto) 8.6 % Eosinophils (%) (Auto) 3.0 % Basophils (%) (Auto) 0.1 % Neutrophils # (Auto) 7.07 1.4-6.5 K/uL Lymphocytes # (Auto) 1.68 1.2-3.4 K/uL Monocytes # (Auto) 0.86 0.11-0.59 K/uL Eosinophils # (Auto) 0.30 0-0.5 K/uL Basophils # (Auto) 0.01 0-0.2 K/uL RDW Standard Deviation 46.0 36.4-46.3 fL RDW Coefficient of Variation 14.8 11.5-14.5 % Immature Granulocyte % (Auto) 0.3 % Immature Granulocyte # (Auto) 0.03 0.00-0.02 K/uL Sodium Level 136 136-145 mmol/L Potassium Level 3.5 3.5-5.1 mmol/L Chloride Level 103 98-107 mmol/L Carbon Dioxide Level 29 21-32 mmol/L Anion Gap 4.0 3-11 mmol/L Blood Urea Nitrogen 9 7-18 mg/dl Creatinine 1.24 0.60-1.40 mg/dl Est Creatinine Clear Calc Drug Dose 56.8 ml/min Estimated GFR () 66.4 Estimated GFR (Non- 57.3 BUN/Creatinine Ratio 7.6 10-20 Random Glucose 122 70-99 mg/dl Calcium Level 8.4 8.5-10.1 mg/dl Magnesium Level 2.4 1.8-2.4 mg/dl
[2017-11-11] VITALS (7 sets, daily range): BP systolic 157–205; BP diastolic 75–91; PULSE 72–82; TEMP 36.9–37; O2SAT 93–96
[2017-11-11] MEDS: OXYCODONE/ACETAMINOPHEN 5-325 TAB PO PRN ×4 (04:40→23:47)
[2017-11-11] MEDS: LACTATED RINGER'S 1000ML 1,000 ML IV SCH (04:41)
[2017-11-11] MEDS: PIPERACILL/TAZOBAC IV 3.375 GM in DEXTROSE 5% 100ML 100 ML IV SCH ×3 (07:25→23:47)
[2017-11-11] MEDS: PANTOprazole SOD 40 MG TAB PO SCH (07:25)
[2017-11-11] MEDS ORDERED: AMLODIPINE BESYLATE 5 MG TAB PO ONE (08:15)
[2017-11-11] MEDS ORDERED: AMLODIPINE BESYLATE 5 MG TAB PO SCH (09:00)
--- NOTE | 2017-11-11 09:38 | Clinical Documentation Query ---
QUERY 1 OF [address] SOLIS, In your clinical opinion is this patient being managed for: (X ) Acute appendicitis with peritonitis ( ) Not Agree ( ) Other explanation of clinical findings (Please Explain) ( ) Unable to determine (Please Define) ( ) Need to Discuss The medical record reflects the following clinical findings, treatment, and risk factors. Clinical Indicators: 72 yo male presenting with abd pain. Found to have acute appendicitis. H/P assessment indicates RLQ tenderness with guarding. OP record indicates turbid fluid within the RLQ. WBC 15.41, T 38.5, HR 112 Treatment: urgent surgery for appendectomy, IV fluids, IV zosyn Risk Factors: acute appendicitis, age, QUERY 2 OF 2 In your clinical opinion is this patient being managed for: ( ) Metabolic encephalopathy (X ) Not Agree ( ) Other explanation of clinical findings (Please Explain) ( ) Unable to determine (Please Define) ( ) Need to Discuss The medical record reflects the following clinical findings, treatment, and risk factors. Clinical Indicators: Pt noted to be confused at home. CT head without acute findings. Glucose 170, WBC 15.41, T 38.5. Treatment: appendectomy, IV fluids, IV zosyn Risk Factors: age, appendicitis Please clarify and document your clinical opinion in the progress notes and discharge summary. Terms such as "probable", "suspected", "likely", "questionable", "possible", or "still to be ruled out" are acceptable. IF IN AGREEMENT, YOU MUST DOCUMENT ABOVE DIAGNOSTIC STATEMENT IN DAILY PROGRESS NOTES AND DISCHARGE SUMMARY. This document is not part of the patient's record. Thank You, Leilani Porter, ALEXUS [phone]
--- NOTE | 2017-11-11 10:03 | Surgery Progress Note ---
Surgery Progress Note Date of Service Nov 11, 2017. Subjective Post OP Day: 3 (s/p laparoscopic appendectomy) Feeling better Tolerating regular diet without nausea Pain with movement, controlled with oral meds No fevers Ambulating hallways Objective Vital Signs: Date Time Temp Pulse Resp B/P (MAP) Pulse Ox O2 Delivery O2 Flow Rate FiO2 11/11/17 08:45 184/91 (122) 11/11/17 07:20 Room Air 11/11/17 07:06 37.0 72 16 169/86 (113) 93 Room Air 11/10/17 23:30 Room Air 11/10/17 22:50 37.0 73 16 134/64 (87) 94 Room Air 11/10/17 15:58 150/78 (102) 11/10/17 15:42 37.1 84 16 168/76 (106) 96 Room Air 11/10/17 15:15 96 Room Air 11/10/17 11:54 36.8 78 18 126/70 (88) 95 Room Air Physical Exam: HOLDEN drainage (serosanguineous) General Appearance: WD/WN, no apparent distress Head: normocephalic, atraumatic Neck: trachea midline Respiratory/Chest: no respiratory distress, no accessory muscle use Abdomen: non distended, soft, no organomegaly, no pulsatile mass, + tenderness (mild at incision sites, appropriate) Incision(s): clean, dry (dressings clean and dry. Some dry drainage present.) Assessment & Plan POD # 3 s/p laparoscopic appendectomy - vitals stable, afebrile - leukocytosis resolved -Nausea resolved, tolerating regular diet - pain better controlled - HOLDEN with serosanguineous output, 75 cc last 24 hour shift, 50 cc this am shift - Post op hypertension Plan: Continue current pain management Continue regular diet Continue IV Zofran prn nausea Continue IV antibiotics Stop IV fluids as tolerating regular diet Encourage ambulation as doing already continue holden drain to bulb suction Continue current hypertension management per hospitalist service Hopeful discharge tomorrow , will be discharged with PO antibiotics Dr. Pena has seen and examined patient, agrees with above
[2017-11-11] MEDS ORDERED: HydrALAZINE HCL 20 MG/ML VIAL IV. ONE (10:07)
[2017-11-11] MEDS: HydrALAZINE HCL 20 MG/ML VIAL IV. PRN (23:46)
[2017-11-12] VITALS (8 sets, daily range): BP systolic 150–195; BP diastolic 74–90; PULSE 90–101; TEMP 36.9; O2SAT 95
[2017-11-12] MEDS ORDERED: AMLODIPINE BESYLATE 5 MG TAB PO ONE (03:52)
[2017-11-12] MEDS: HydrALAZINE HCL 20 MG/ML VIAL IV. PRN (07:13)
[2017-11-12] MEDS: OXYCODONE/ACETAMINOPHEN 5-325 TAB PO PRN ×2 (07:50→12:57)
[2017-11-12] MEDS: PIPERACILL/TAZOBAC IV 3.375 GM in DEXTROSE 5% 100ML 100 ML IV SCH (07:51)
[2017-11-12] MEDS: ONDANSETRON INJ 2 MG/ML 2 ML VIAL IV PRN (07:51)
[2017-11-12] MEDS: PANTOprazole SOD 40 MG TAB PO SCH (08:43)
--- NOTE | 2017-11-12 11:50 | Progress Note ---
Internal Med Progress Note Date of Service: Nov 12, 2017. Provider Documentation: SUBJECTIVE: The patient was seen and examined Noted to have high BP without any symptoms Denies any symptoms BP remains high without any symptoms Will need to go home on Amlodipine OBJECTIVE: Vital Signs-as noted below Exam: General-no distress at rest Eyes-normal ENT-normal Neck-supple Lungs-clear to ausucltate bilaterally Heart-Regular,no murmur Abdomen-Benign Extremities-No edema Neuro-AAOx3 Lab data as noted below. ASSESSMENT & PLAN: This is a 72 year old male with a PMH of GERD, BPH - presents with acute appendicitis Elevated Blood Pressure without diagnosis of HTN BP remains elevated chang-operatively initially, likely elevated due to pain, currently elevated possibly secondary to stress response from surgery either way, we will try one dose of amlodipine to bring this down continue pain control, monitor labs in AM Remains on the upper side BP remains high and will need Oral med to continue Will put him on Amlodipine 10mg Daily Acute Appendicitis s/p lap appendectomy POD # 3 doing well, pain controlled, continue pain regimen as per general surgery currently on Zosyn, WBC improving CBC and PRP-unremarkable Expected Acute Blood Loss Anemia Hgb down from 12 to [address], draining serosanguineous discharge monitor CBC-no change in Hb GERD continue Protonix can continue Prilosec on discharge DVT ppx as per ortho early ambulation FULL CODE Medically stable to be discharged Vital Signs: Date Time Temp Pulse Resp B/P (MAP) Pulse Ox O2 Delivery O2 Flow Rate FiO2 11/12/17 09:12 150/74 (99) 11/12/17 07:29 36.9 98 16 174/83 (113) 95 Room Air 11/12/17 07:20 Room Air 11/12/17 07:11 101 195/90 (125) 11/12/17 06:30 91 181/81 (114) 11/12/17 05:17 90 174/83 (113) 11/12/17 03:16 182/86 (118) 11/12/17 02:19 180/80 (113) 11/11/17 23:37 37.0 82 16 185/86 (119) 96 Room Air 11/11/17 23:35 Room Air 11/11/17 15:35 Room Air 11/11/17 15:15 36.9 75 18 159/77 (104) 95 Room Air 11/11/17 14:10 157/75 (102)
[2017-11-12] MEDS ORDERED: ONDA4TAB10 SL (12:10)
[2017-11-12] MEDS ORDERED: AMOX875T PO (12:10)
[2017-11-12] MEDS ORDERED: OXYC-57 PO (12:10)
[2017-11-12] MEDS ORDERED: AMLO-114 PO (12:11)
[2017-11-12] MEDS ORDERED: BISACODYL 5 MG TABEC PO ONE (12:15)
--- NOTE | 2017-11-12 12:18 | Discharge Instructions ---
Discharge Instructions Date of Service Nov 12, 2017. Admission Reason for Admission: Acute Appendicitis Discharge Discharge Diagnosis / Problem: Perforated and gangrenous appendicitis Discharge Goals Goal(s): Decrease discomfort, Improve function Activity Recommendations Activity Limitations: per Instructions/Follow-up section No heavy lifting over 10 pounds for 2 weeks No strenuous activity until cleared by surgeon No submerging incisions underwater for 2 weeks or until healed (no swimming, bathing, or hot tubs) No driving while taking narcotic pain medication or until you are pain free . Instructions / Follow-Up Instructions / Follow-Up You may shower when you get home. Remove outer dressings and replace as needed to keep clean and dry Leave steri strips on incisions for 7 days and then remove. They may fall off on their own that is okay. Walking and light activity is encouraged to prevent blood clots from forming in your legs You will be given Prescription for narcotic pain medication as needed for moderate to severe abdominal pain. This medication may make you drowsy. You may take extra strength Ibuprofen as needed for mild pain. You may take extra strength Tylenol for mild pain when you are no longer taking Percocet as Percocet has Tylenol in it. Finish entire course of antibiotics as prescribed Follow up in surgical office in 1 week, please call office at [phone] to make an appointment. Your blood pressure was high during your post operative course. The hospitalist started you on Amlodipine 10 mg daily. You will need to follow-up with your PCP in regards to management of high blood pressure. I have given you a 30 day course in the meantime. Current Hospital Diet Patient's current hospital diet: Regular Diet Discharge Diet Recommended Diet: Regular Diet Procedures Procedures Performed: Laparoscopic Appendectomy Pending Studies Studies pending at discharge: no Medical Emergencies . Who to Call and When: Medical Emergencies: If at any time you feel your situation is an emergency, please call 911 immediately. . Non-Emergent Contact Non-Emergency issues call your: Primary Care Provider, Surgeon Call Non-Emergent contact if: you have a fever, temperature is above 101, your pain is not controlled, your pain is worsening, your pain is unusual for you, wound has increased drainage, wound has increased redness, wound has increased pain . "Provider Documentation" section prepared by Nieves Greco. . VTE Core Measure Inpt VTE Proph given/why not?: SCD's [place] Drug Monitoring Program Search Results: patient reviewed within database, no issues identified
--- NOTE | 2017-11-12 12:52 | Surgery Progress Note ---
Surgery Progress Note Date of Service Nov 12, 2017. Subjective Post OP Day: 4 + feeling well, + complaints (mild nausea this am , resolved), + ambulating, + flatus, + pain controlled, + nausea, + diet (regular diet), No chest pain, No SOB, No bowel movement, No vomiting Objective Vital Signs: Date Time Temp Pulse Resp B/P (MAP) Pulse Ox O2 Delivery O2 Flow Rate FiO2 11/12/17 09:12 150/74 (99) 11/12/17 07:29 36.9 98 16 174/83 (113) 95 Room Air 11/12/17 07:20 Room Air 11/12/17 07:11 101 195/90 (125) 11/12/17 06:30 91 181/81 (114) 11/12/17 05:17 90 174/83 (113) 11/12/17 03:16 182/86 (118) 11/12/17 02:19 180/80 (113) 11/11/17 23:37 37.0 82 16 185/86 (119) 96 Room Air 11/11/17 23:35 Room Air 11/11/17 15:35 Room Air 11/11/17 15:15 36.9 75 18 159/77 (104) 95 Room Air 11/11/17 14:10 157/75 (102) Physical Exam: HOLDEN drainage (serous) General Appearance: WD/WN, no apparent distress Head: normocephalic, atraumatic Neck: trachea midline Respiratory/Chest: no respiratory distress, no accessory muscle use Abdomen: non tender, non distended, soft, no organomegaly, no pulsatile mass Incision(s): clean, dry (dressing clean and dry) Assessment & Plan POD # 4 s/p laparoscopic appendectomy - vitals stable, afebrile - leukocytosis resolved - mild Nausea this am, tolerating regular diet - pain controlled - HOLDEN with serous output, 90 cc last 24 hour shift, 30 cc this am shift - Post op hypertension Plan: Discharge home this afternoon discontinue holden drain prior to discharge Discharge instructions reviewed Rx for Percocet prn pain, zofran prn nausea, 7 day course of Augmentin and 10 mg of Amlodipine daily per hospitalist for HTN (appreciate recs) F/u surgical office 1 week f/u PCP for HTN management in a week or two Dr. Pena has seen and examined patient, agrees with above
[2017-11-13] MEDS ORDERED: AMLODIPINE BESYLATE 5 MG TAB PO SCH (09:00)
== END 2017-11-12 13:40 | disposition home or self-care (01) | DRG 343 ==
LOC: EDBD 21:07 → C.EDB 21:09 → C.3E 11-08 02:27 → ENRESERV 11-08 03:59
PROVIDERS: ADMIT Surgery; ATTEND Surgery
PROC: 0DTJ4ZZ Resection of Appendix, Percutaneous Endoscopic Approach (ICD-10-PCS; principal; 2017-11-08 01:43)
DX: K35.80 Unspecified acute appendicitis (principal); R03.0 Elevated blood-pressure reading, without diagnosis of hypertension; K21.9 Gastro-esophageal reflux disease without esophagitis; Z79.82 Long term (current) use of aspirin; Z79.899 Other long term (current) drug therapy; Z87.891 Personal history of nicotine dependence